=== PATIENT | male | born 1985 | race Two or more races ===

== ENCOUNTER 2017-09-28 10:05 | Emergency (ER) | payer SELFPAY ==
[~2017-09-28] VITALS: Ht 175.3 cm; Wt 94.7 kg
[2017-09-28 10:21] VITALS: BP 144/97
[2017-09-28] MEDS ORDERED: LIDOcaine 1%/PF 5ML 10 MG/ML VIAL IJ ONE (11:40)
[2017-09-28] MEDS ORDERED: TETanus/Pertussis (Acell)/Diphther VAC/PF (Tdap-Adult) 0.5ml syringe IM ONE (11:40)
[2017-09-28] MEDS ORDERED: IBUP-1984 PO (12:40)
== END 2017-09-28 13:06 | disposition home or self-care (01) ==
LOC: ER 10:06
DX: S01.01XA Laceration without foreign body of scalp, initial encounter (principal); S41.112A Laceration without foreign body of left upper arm, initial encounter; S71.111A Laceration without foreign body, right thigh, initial encounter; Z79.1 Long term (current) use of non-steroidal anti-inflammatories (NSAID); W22.8XXA Striking against or struck by other objects, initial encounter; Y93.89 Activity, other specified; Y92.89 Other specified places as the place of occurrence of the external cause; Y99.8 Other external cause status
CPT/HCPCS: 12002; 90471; 90715; 99283; A6449; J2001